=== PATIENT | male | born 1955 | race Caucasian/White ===

== ENCOUNTER 2016-08-28 06:54 | Emergency (ER) | payer OTHER ==
[~2016-08-28] VITALS: Ht 170.2 cm; Wt 85.4 kg
[2016-08-28] MEDS ORDERED: IOVERSOL 350 MG/ML 100 ML VIAL ONE (07:18)
[2016-08-28] MEDS ORDERED: SODIUM CHLORIDE 0.9% 100 ML ONE (07:18)
[2016-08-28 07:25] LABS: BASOPHILS % (AUTO) 0.1 % (0.0-2.0); EOSINOPHILS % (AUTO) 1.2 % (1.0-6.0); HEMATOCRIT 38.9 % (41-53); HEMOGLOBIN 12.9 g/dL (13.5-17.5); LYMPHOCYTES # (AUTO) 0.8 K/uL (1.0-4.8); LYMPHOCYTES % (AUTO) 11.4 % (22.0-44.0); MEAN CORPUSCULAR HEMOGLOBIN 29.2 pg (26.0-34.0); MEAN CORPUSCULAR HGB CONC 33.2 G/dL (31.0-37.0); MEAN CORPUSCULAR VOLUME 88 fL (80-100); MONOCYTES # (AUTO) 0.6 K/uL (0.1-1.0); MONOCYTES % (AUTO) 9.1 % (2.0-9.0); NEUTROPHILS # (AUTO) 5.3 K/uL (1.8-7.7); NEUTROPHILS % (AUTO) 78.2 % (40.0-70.0); PLATELET COUNT (AUTO) 82 K/uL (150-450); RED BLOOD CELL COUNT(AUTO) 4.42 MIL/uL (4.50-5.90); RED CELL DISTRIBUTION WIDTH 15.4 % (11.5-14.5); WHITE BLOOD COUNT (AUTO) 6.8 K/uL (4.5-11.0)
[2016-08-28 07:35] LABS: ANION GAP 10 mmol/L (8-16); CALCIUM, TOTAL 9.9 mg/dL (8.8-10.5); CARBON DIOXIDE 27 mmol/L (22-29); CHLORIDE 105 mmol/L (98-107); CREATININE 0.94 mg/dL (0.60-1.30); GLOMERULAR FILTR. RATE CALC > 60 mL/min (>60); POTASSIUM 3.7 mmol/L (3.5-5.1); SODIUM SERUM 142 mmol/L (136-145); UREA NITROGEN, BLOOD 16 mg/dL (7-18)
[2016-08-28 07:36] LABS: INR 1.1 (0.9-1.1); PROTHROMBIN TIME 11.7 SEC (9.4-11.6)
[2016-08-28 08:04] LABS: ALANINE AMINOTRANSFERASE 29 U/L (12-78); ALBUMIN 3.8 g/dL (3.4-5.0); ASPARTATE AMINOTRANSFERASE 41 U/L (15-37); BILIRUBIN,TOTAL 1.2 mg/dL (0.1-1.0); CREATINE KINASE MB 5.8 ng/mL (0-5); CREATINE KINASE, TOTAL 556 U/L (39-308); TOTAL PROTEIN, SERUM 7.5 g/dL (6.4-8.2)
[2016-08-28 08:34] LABS: APPEARANCE,URINE CLEAR (CLEAR); GLUCOSE, URINE (UA) NEGATIVE (NEGATIVE); KETONES,URINE NEGATIVE (NEGATIVE); LEUKOCYTE ESTERASE ,URINE NEGATIVE (NEGATIVE); OCCULT BLOOD,URINE NEGATIVE (NEGATIVE); PROTEIN,URINE NEGATIVE (NEGATIVE)
[2016-08-28 08:36] LABS: ADD UA MICROSCOPIC NO
[2016-08-28] MEDS ORDERED: ASPIRIN 81 MG CHEWABLE TABLET PO ONE (08:45)
[2016-08-28] MEDS ORDERED: ASPIRIN 300 MG RECTAL SUPPOSITORY PR ONE (09:15)
[2016-08-28] MEDS ORDERED: ONDANSETRON HCL 4 MG/2 ML VIAL IVP PRN (09:15)
[2016-08-28] MEDS ORDERED: METF500T7 PO (10:20)
[2016-08-28] MEDS ORDERED: INSNOV SQ (10:20)
[2016-08-28] MEDS ORDERED: LACT30L PO (11:43)
[2016-08-28] MEDS ORDERED: OXYC1TAB72 PO (11:43)
[2016-08-28] MEDS ORDERED: AMOX1TAB16 PO (11:43)
[2016-08-28] MEDS ORDERED: AMYL1CAP63 PO (11:43)
[2016-08-28] MEDS ORDERED: GLIM2 PO (11:43)
[2016-08-28] MEDS ORDERED: INSLAN SQ (11:43)
[2016-08-28] MEDS ORDERED: PANT40TA25 PO (11:43)
[2016-08-28] MEDS ORDERED: LEVO50 PO (11:43)
[2016-08-28 15:44] VITALS: BP 134/68
== END 2016-08-28 15:49 | disposition short-term general hospital (02) ==
LOC: EMS 06:58 → EDBD 06:58 → EMS 15:49
DX: I63.9 Cerebral infarction, unspecified (principal)
CPT/HCPCS: 36415; 51702; 70450; 70496; 71010; 80053; 80307; 81003; 82550; 82553; 82962; 84484; 85025; 85610; 85730; 93005; 99291; G0480; J7050; Q9967